=== PATIENT | male | born 1970 | race Two or more races ===

== ENCOUNTER 2025-09-11 19:20 | Emergency (ER) | payer BC ==
[~2025-09-11] VITALS: Ht 175.3 cm; Wt 90.9 kg
[2025-09-11 20:00] VITALS: TEMP 97.8
[2025-09-11] MEDS ORDERED: PRED-554 PO (20:22)
[2025-09-11] MEDS ORDERED: DIPH50CA37 PO (20:22)
[2025-09-11] MEDS: ACETAMINOPHEN 500 MG TABLET PO ONE (20:36)
[2025-09-11 21:30] VITALS: BP 129/75; PULSE 68; RESP 18; O2SAT 97
== END 2025-09-11 22:10 | disposition home or self-care (01) ==
LOC: EMS 19:20
DX: S20.469A Insect bite (nonvenomous) of unspecified back wall of thorax, initial encounter (principal); W57.XXXA Bitten or stung by nonvenomous insect and other nonvenomous arthropods, initial encounter; Y93.89 Activity, other specified; Y92.89 Other specified places as the place of occurrence of the external cause; Y99.8 Other external cause status
CPT/HCPCS: 99284; J7512